=== PATIENT | female | born 1980 | race Caucasian/White ===

== ENCOUNTER 2018-10-22 21:20 | Emergency (ER) | payer SELFPAY ==
[2018-10-22] MEDS ORDERED: Ibuprofen 200 MG TAB ONE (22:56)
[2018-10-22] MEDS ORDERED: Acetaminophen 325 MG TAB ONE (22:56)
--- NOTE | 2018-10-22 23:03 | RAD ---
RADIOGRAPH CHEST 2 VIEWS: DATE: 10/22/2018 HISTORY: 38-year-old female with cough and fever FINDINGS: There is no airspace density, pulmonary edema, pleural effusion, pneumothorax, or cardiomegaly. IMPRESSION: No acute cardiopulmonary findings.
== END 2018-10-22 23:15 | disposition home or self-care (01) ==
LOC: ERS 21:20
DX: J02.9 Acute pharyngitis, unspecified (principal); F41.9 Anxiety disorder, unspecified; F32.9 Major depressive disorder, single episode, unspecified; F43.10 Post-traumatic stress disorder, unspecified; F17.210 Nicotine dependence, cigarettes, uncomplicated
CPT/HCPCS: 71046; 87804

== ENCOUNTER 2019-04-10 13:07 | Emergency (ER) | payer OTHER, SELFPAY ==
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
== END 2019-04-10 16:00 | disposition home or self-care (01) ==
LOC: ERS 13:07
DX: S60.012A Contusion of left thumb without damage to nail, initial encounter (principal); F41.9 Anxiety disorder, unspecified; F32.9 Major depressive disorder, single episode, unspecified; F43.10 Post-traumatic stress disorder, unspecified; F17.210 Nicotine dependence, cigarettes, uncomplicated; W01.0XXA Fall on same level from slipping, tripping and stumbling without subsequent striking against object, initial encounter

== ENCOUNTER 2019-07-11 12:32 | Emergency (ER) | payer SELFPAY ==
--- NOTE | 2019-07-11 12:58 | RAD ---
2 view chest: [07/11/2019] Comparison:10/22/2018 HISTORY: Chest congestion and chest soreness FINDINGS: Heart and mediastinal contours are grossly unremarkable. No pneumothorax or pleural fluid. No focal consolidation or alveolar edema. IMPRESSION: No acute findings.
== END 2019-07-11 14:05 | disposition home or self-care (01) ==
LOC: ERS 12:32
DX: R05 Cough (principal); F41.9 Anxiety disorder, unspecified; F32.9 Major depressive disorder, single episode, unspecified; F43.10 Post-traumatic stress disorder, unspecified; F17.210 Nicotine dependence, cigarettes, uncomplicated
CPT/HCPCS: 71046

== ENCOUNTER 2020-04-29 11:15 | Emergency (ER) | payer SELFPAY ==
[2020-04-29 12:40] LABS: #Basophils 0.1 thou/uL (0.0-0.2); #Eosinphils 0.3 thou/uL (0.0-0.7); #Lymphocytes 2.5 thou/uL (1.20-3.40); #Monocytes 0.5 thou/uL (0.11-0.59); #Neutrophils 5.1 thou/uL (1.40-6.50); %Basophils 1.4 % (0.0-1.0); %Lymphocytes 29.4 % (21.0-51.0); %Monocytes 5.5 % (0.0-10.0); %Neutrophils 59.6 % (42.0-75.0); Hemoglobin 14.5 g/dL (12.0-16.0); Mean Corpuscular HGB CONC 34.1 g/dL (32.0-36.0); Mean Corpuscular Hemoglobin 31.7 pg (27.0-31.0); Mean Platelet Volume 8.9 fL (7.4-10.4); Platelet Count 225 thou/uL (130-400); RBC Distribution Width 12.9 % (11.5-14.5); Red Blood Cell (RBC) Count 4.56 mill/uL (4.20-5.40); White Blood Cell (WBC) Count 8.5 thou/uL (4.8-10.8)
--- NOTE | 2020-04-29 12:41 | RAD ---
PA CHEST: History: Chest pain FINDINGS: Lungs appear clear. No infiltrate. Heart and mediastinum appear normal. IMPRESSION: No acute findings. POS: AH
[2020-04-29] MEDS ORDERED: Mag-Al 1200 mg/1200 mg/30 ML UDCUP ONE (12:51)
[2020-04-29] MEDS ORDERED: Famotidine/PF 20 mg/2ml Vial ONE (12:51)
[2020-04-29] MEDS ORDERED: Lidocaine Viscous Sol 2% 15 ml UD Cup ONE (12:51)
[2020-04-29 13:03] LABS: ALT (SGPT) 26 U/L (8-55); AST (SGOT) 16 U/L (5-34); Albumin 4.1 g/dL (3.5-5.0); Alkaline Phosphatase 91 U/L (40-110); Anion Gap 11 mmol/L (10-20); BUN (Urea Nitrogen) 6 mg/dL (7.0-18.7); Bilirubin, Total 0.2 mg/dL (0.2-1.2); Calc. Creatinine Clearance 0 mL/min (70-130); Calcium 9.1 mg/dL (7.8-10.44); Carbon Dioxide 25 mmol/L (22-29); Chloride 106 mmol/L (98-107); Estimated GFR-MDRD 83; Globulin 3.2 g/dL (2.4-3.5); Glucose 77 mg/dL (70-105); Potassium 3.9 mmol/L (3.5-5.1); Protein, Total 7.3 g/dL (6.0-8.3); Sodium 138 mmol/L (136-145)
--- NOTE | 2020-04-29 13:13 | CT ---
EXAM: CT pulmonary angiogram with IV contrast and 3-D MIP reconstructions PROVIDED CLINICAL HISTORY: Shortness of breath COMPARISON: None FINDINGS: There is no evidence for central or segmental pulmonary embolus. The lungs are free of significant opacity. No pleural fluid or pneumothorax apparent. No evidence for thoracic lymph node enlargement. The airway appears patent and of normal caliber. The visualized portions of the upper abdomen demonstrate no acute findings. The osseous structures demonstrate no concerning lytic or blastic lesions. IMPRESSION: No evidence for central or segmental pulmonary embolus.
[2020-04-29 13:32] LABS: Bilirubin Negative (Negative); Blood, Urine Negative (Negative); Clarity Clear (Clear); Glucose, Urine (Dipstick) Normal (Negative); Ketone, Urine Negative (Negative); Leukocyte Negative Leu/uL (Negative); Nitrite Negative (Negative); Protein, Urine (Dipstick) Negative (Neg-Trace); Specific Gravity, Urine 1.016 (1.002-1.036); Urobilinogen Normal mg/dL (Less than 2)
[2020-04-29 13:42] LABS: Medtox Reader # READER 1
[2020-04-29 13:43] LABS: Amphetamine Not Detected (NotDetected); Barbiturates Screen Not Detected (NotDetected); Benzodiazepine Screen Not Detected (NotDetected); Cocaine Metabolite Screen Not Detected (NotDetected); Methadone Not Detected (NotDetected); Methamphetamine Not Detected (NotDetected); Opiate Screen Not Detected (NotDetected); Oxycodone Screen Not Detected (NotDetected); Phencyclidine (PCP) Not Detected (NotDetected); THC/Cannabinoid Screen Not Detected (NotDetected); Tricyclic Screen Detected (NotDetected)
[2020-04-29 13:44] LABS: Medtox Control Line Valid? VALID (VALID)
[2020-04-29] MEDS ORDERED: Iopamidol-370 76% 500 ML 1 ML ONE (14:07)
[2020-04-29 15:23] LABS: Acetaminophen Less than 6.0 mcg/mL (10.0-30.0); Alcohol Less than 10 mg/dL (Less than 10); Salicylate Less than 8.0 mg/dL (15.0-30.0)
== END 2020-04-29 14:06 | disposition home or self-care (01) ==
LOC: ERS 11:15
DX: R00.2 Palpitations (principal); R06.00 Dyspnea, unspecified; F41.9 Anxiety disorder, unspecified; F17.210 Nicotine dependence, cigarettes, uncomplicated; Z79.899 Other long term (current) drug therapy
CPT/HCPCS: 71045; 71275; 80053; 80306; 80307; 81003; 84443; 84484; 85025; 85379; 93005; 94760; 96374; Q9967; S0028

== ENCOUNTER 2020-05-23 13:47 | Inpatient (IN) | payer SELFPAY ==
[2020-05-23 14:20] LABS: #Basophils 0.1 thou/uL (0.0-0.2); #Eosinphils 0.4 thou/uL (0.0-0.7); #Lymphocytes 2.6 thou/uL (1.20-3.40); #Monocytes 0.5 thou/uL (0.11-0.59); #Neutrophils 4.1 thou/uL (1.40-6.50); %Basophils 1.5 % (0.0-1.0); %Eosinophils 5.7 % (0.0-10.0); %Lymphocytes 33.8 % (21.0-51.0); %Monocytes 6.1 % (0.0-10.0); %Neutrophils 52.8 % (42.0-75.0); Hemoglobin 13.3 g/dL (12.0-16.0); Mean Corpuscular HGB CONC 33.5 g/dL (32.0-36.0); Mean Corpuscular Hemoglobin 30.7 pg (27.0-31.0); Mean Corpuscular Volume 91.6 fL (78.0-98.0); Mean Platelet Volume 8.2 fL (7.4-10.4); Platelet Count 243 thou/uL (130-400); RBC Distribution Width 12.7 % (11.5-14.5); Red Blood Cell (RBC) Count 4.34 mill/uL (4.20-5.40); White Blood Cell (WBC) Count 7.7 thou/uL (4.8-10.8)
--- NOTE | 2020-05-23 14:21 | RAD ---
EXAM: CHEST ONE VIEW HISTORY: Tachycardia over last couple of months. desk monitor in place. COMPARISON: 04/29/2020 FINDINGS: A electronic monitoring device overlies the left lung apex. Cardiac silhouette and pulmonary vasculat ure are within normal limits. The lungs are clear. There has been no interval change from prior study. IMPRESSION: Stable chest without evidence of an acute cardiopulmonary process.
[2020-05-23 14:28] LABS: BHCG - Serum Negative (NEGATIVE); Pregs Control Background? CLEAR/WHITE (CLR/WHITE); Pregs Control Bar Appear? YES (CONTROL BAR)
[2020-05-23 14:43] LABS: Bilirubin Negative (Negative); Blood, Urine Negative (Negative); Clarity Clear (Clear); Glucose, Urine (Dipstick) Normal (Negative); Ketone, Urine Negative (Negative); Leukocyte Negative Leu/uL (Negative); Nitrite Negative (Negative); Protein, Urine (Dipstick) Negative (Neg-Trace); Specific Gravity, Urine 1.006 (1.002-1.036); Urobilinogen Normal mg/dL (Less than 2); pH, Urine 7.5 (5.0-9.0)
[2020-05-23 14:50] LABS: ALT (SGPT) 16 U/L (8-55); AST (SGOT) 14 U/L (5-34); Albumin 3.7 g/dL (3.5-5.0); Alkaline Phosphatase 86 U/L (40-110); Anion Gap 14 mmol/L (10-20); BUN (Urea Nitrogen) 7 mg/dL (7.0-18.7); Bilirubin, Total 0.2 mg/dL (0.2-1.2); Calc. Creatinine Clearance 0 mL/min (70-130); Calcium 8.5 mg/dL (7.8-10.44); Carbon Dioxide 22 mmol/L (22-29); Chloride 108 mmol/L (98-107); Estimated GFR-MDRD 89; Globulin 2.8 g/dL (2.4-3.5); Glucose 112 mg/dL (70-105); Potassium 3.8 mmol/L (3.5-5.1); Protein, Total 6.5 g/dL (6.0-8.3); Sodium 140 mmol/L (136-145)
[2020-05-23] MEDS ORDERED: Acetaminophen 325 MG TAB PO PRN (15:49)
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
[2020-05-23 18:35] LABS: Troponin I Less than 0.010 ng/mL (< 0.028)
[2020-05-23 21:13] VITALS: BMI 35.4
[2020-05-23] MEDS ORDERED: Ondansetron PF 4 MG/2 ML Vial IVP PRN (21:15)
[2020-05-23] MEDS ORDERED: Ondansetron ODT 4 MG TAB SL PRN (21:15)
[2020-05-23] MEDS ORDERED: Sodium Chloride 0.9% 1,000 ML IV SCH (21:15)
[2020-05-23 22:45] LABS: Troponin I Less than 0.010 ng/mL (< 0.028)
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
[2020-05-23] MEDS ORDERED: Amitriptyline HCl 100 MG TAB PO SCH (23:45)
[2020-05-23] MEDS ORDERED: Escitalopram Oxalate 20 mg Tablet PO SCH (23:45)
[2020-05-23] MEDS ORDERED: Propranolol 10 MG TAB PO SCH (23:45)
[2020-05-24] MEDS ORDERED: GABAPENTIN ENACARBIL 600 MG PO SCH (00:15)
[2020-05-24 00:46] LABS: SARS-CoV-2 MS2 Positive; SARS-CoV-2 N Gene Negative; SARS-CoV-2 S Gene Negative; SARS-CoV-2 by NAA Not Detected (NotDetected); SARS-CoV-2 orf1ab Negative
[2020-05-24 04:47] LABS: #Basophils 0.1 thou/uL (0.0-0.2); #Eosinphils 0.4 thou/uL (0.0-0.7); #Lymphocytes 2.6 thou/uL (1.20-3.40); #Monocytes 0.5 thou/uL (0.11-0.59); #Neutrophils 4.4 thou/uL (1.40-6.50); %Basophils 1.7 % (0.0-1.0); %Eosinophils 5.4 % (0.0-10.0); %Lymphocytes 31.8 % (21.0-51.0); %Monocytes 6.5 % (0.0-10.0); %Neutrophils 54.6 % (42.0-75.0); Hemoglobin 11.8 g/dL (12.0-16.0); Mean Corpuscular HGB CONC 33.4 g/dL (32.0-36.0); Mean Corpuscular Hemoglobin 31.2 pg (27.0-31.0); Mean Corpuscular Volume 93.3 fL (78.0-98.0); Mean Platelet Volume 8.2 fL (7.4-10.4); Platelet Count 215 thou/uL (130-400); RBC Distribution Width 12.8 % (11.5-14.5); Red Blood Cell (RBC) Count 3.77 mill/uL (4.20-5.40); White Blood Cell (WBC) Count 8.1 thou/uL (4.8-10.8)
[2020-05-24 05:22] LABS: Anion Gap 13 mmol/L (10-20); BUN (Urea Nitrogen) 11 mg/dL (7.0-18.7); Calc. Creatinine Clearance 136 mL/min (70-130); Calcium 7.8 mg/dL (7.8-10.44); Carbon Dioxide 21 mmol/L (22-29); Chloride 109 mmol/L (98-107); Estimated GFR-MDRD 88; Glucose 102 mg/dL (70-105); Potassium 3.9 mmol/L (3.5-5.1); Sodium 139 mmol/L (136-145)
[2020-05-24] MEDS: Propranolol 10 MG TAB PO SCH ×2 (09:54→21:32)
--- NOTE | 2020-05-24 11:13 | PDOC.HOSPP ---
- Subjective Encounter Date: 05/24/20 Encounter Time: 10:40 Subjective: Patient was seen as a follow-up for tachycardia and progressive dyspnea this morning. She states she feels overly tired and she feels she cannot get a good night sleep due to shortness of breath. Patient's heart rate remained in a regular rhythm in the 80s overnight. Patient stated that Dr. Mitchell said she is possibly going for an ablation tomorrow. - Objective Vital Signs & Weight: Vital Signs (12 hours) Temp Pulse Resp BP Pulse Ox 05/24/20 07:36 98.3 F 88 18 108/60 97 05/24/20 04:00 97.9 F 88 22 H 112/68 98 Weight Weight 187 lb 3.2 oz I&O: 05/23/20 05/24/20 05/25/20 06:59 06:59 06:59 Intake Total 1334 Output Total 350 Balance 984 Result Diagrams: 05/24/20 04:31 05/24/20 04:31 Hospitalist ROS - Review of Systems Respiratory: reports: shortness of breath Cardiovascular: reports: orthopnea All other systems reviewed; all pertinent +/- noted in HPI/Subj - Medication Medications: Active Medications Generic Name Dose Route Start Last Admin Trade Name Freq PRN Reason Stop Dose Admin Acetaminophen 650 mg 05/23/20 15:49 05/23/20 23:21 Acetaminophen 325 Mg Tab PO 650 mg Q4H PRN Administration Headache/Fever/Mild Pain (1-3) Propranolol HCl 20 mg 05/24/20 09:00 05/24/20 09:54 Propranolol 10 Mg Tab PO 20 mg BID JORDON Administration Sodium Chloride 10 ml 05/24/20 09:00 05/24/20 09:55 Flush - Normal Saline 10 Ml Syringe IVF 10 ml Q12HR JORDON Administration - Exam General Appearance: NAD, awake alert Heart: RRR, no murmur, no gallops, no rubs, normal peripheral pulses Respiratory: CTAB, no wheezes, no rales, no ronchi, normal chest expansion Respiratory - other findings: Appears slightly labored when talking Gastrointestinal: soft, non-tender, non-distended, normal bowel sounds Extremities: 1+ LE edema Psychiatric: flat affect Hosp A/P (1) Sinus tachycardia Code(s): R00.0 - TACHYCARDIA, UNSPECIFIED Status: Acute (2) Dyspnea Code(s): R06.00 - DYSPNEA, UNSPECIFIED Status: Acute (3) GERD (gastroesophageal reflux disease) Code(s): K21.9 - GASTRO-ESOPHAGEAL REFLUX DISEASE WITHOUT ESOPHAGITIS Status: Chronic (4) Neuropathy Code(s): G62.9 - POLYNEUROPATHY, UNSPECIFIED Status: Chronic - Plan #Sinus tachycardia Possible ablation tomorrow per EP Monitor on telemetry, no arrhythmias noted as of yet VS q4hr #Dyspnea Awaiting pulmonology consult Shortness of breath began intermittently after April 06, 2020 #GERD Home meds have been restarted No current complaints #Neuropathy Home meds have been restarted
[2020-05-24] MEDS ORDERED: busPIRone HCl 10 MG TAB PO PRN (11:16)
--- NOTE | 2020-05-24 16:04 | PDOC.EP ---
- Subjective Date: 05/24/20 Time: 08:00 Interval History: No change overnight. She continues to experience shortness of breath and occasional tachycardia with palpitations - Review of Systems Constitutional: reports: weakness. denies: chills, fever, malaise Respiratory: reports: shortness of breath, SOB with excertion Cardiology: reports: heart racing, palpitations Gastrointestinal: denies: abdominal pain, constipation, nausea, vomitting Musculoskeletal: denies: unstable gait, falls, neck pain - Objective Allergies/Adverse Reactions: Allergies Allergy/AdvReac Type Severity Reaction Status Date / Time naproxen Allergy Verified 05/23/20 21:16 Current Medications Acetaminophen (Acetaminophen 325 Mg Tab) 650 mg PO Q4H PRN PRN Reason: Headache/Fever/Mild Pain (1-3) Last Admin: 05/23/20 23:21 Dose: 650 mg Documented by: Amitriptyline HCl (Amitriptyline Hcl 100 Mg Tab) 100 mg PO HS JORDON Buspirone HCl (Buspirone Hcl 10 Mg Tab) 10 mg PO BIDPRN PRN PRN Reason: Anxiety Escitalopram Oxalate (Escitalopram Oxalate 20 Mg Tablet) 20 mg PO HS [facility] Pantoprazole Sodium (Pantoprazole 40 Mg Tab) 40 mg PO DAILY [facility] Gabapentin Enacarbil [Horizant] 600 Mg Tablet.Er 0 each PO 1700 [facility] Propranolol HCl (Propranolol 10 Mg Tab) 20 mg PO BID [facility] Last Admin: 05/24/20 09:54 Dose: 20 mg Documented by: Sodium Chloride (Flush - Normal Saline 10 Ml Syringe) 10 ml IVF Q12HR [facility] Last Admin: 05/24/20 09:55 Dose: 10 ml Documented by: Sodium Chloride (Flush - Normal Saline 10 Ml Syringe) 10 ml IVF PRN PRN PRN Reason: Saline Flush Vital Signs & Weight: Vital Signs Temp Pulse Resp BP Pulse Ox 05/24/20 15:37 98.4 F 90 16 103/59 L 97 05/24/20 11:21 97.6 F 90 18 114/56 L 97 05/24/20 07:36 98.3 F 88 18 108/60 97 Weight 187 lb 3.2 oz I/O: I/O 05/23/20 05/24/20 05/25/20 06:59 06:59 06:59 Intake Total 1334 Output Total 350 Balance 984 - Physical Exam General: alert & oriented x3, appears well, no apparent distress HEENT: mucus membranes moist, normocephaly Neck: supple neck, midline trachea, no lymphadenopathy Cardiology: regular rate and rhythm, no murmur, regular rhythm, PMI nondisplaced, tachycardia Lungs: clear to auscultation, normal breath sounds, no wheeze, rales, rhonchi Neurology: cranial nerve 2-12 intact, grossly intact, no lateralizing findings - Labs Result Diagrams: 05/25/20 04:09 05/25/20 04:09 - EKG Interpretation EKG Method: Telemetry EKG shows: Sinus tachycardia - Assessment/Plan Assessment/Plan: 1. Supraventricular tachycardia. 2. Sinus tachycardia. 3. Progressive dyspnea and shortness of breath x6 weeks. 4. preserved LVEF by echocardiogram last week 5. normal stress test last week 6. history of tubal ligation, serum test negative this hospital stay received initial results from a external monitor she has been wearing for the past few weeks. It shows frequent sinus tachycardia between 115 and 145 beats per minute. The morning she came to the hospital it shows SVT at 180 beats per minute, with difficult to visualize Pwaves. As I have previously discussed with her it sounds as though she may have multiple issues going on. The current episode could be caused by a reentry type of SVT, this does not explain why she continues to have frequent and progressive dyspnea, shortness of breath and sinus tachycardia. pulmonary consult pending. vital signs are stable and she remains afebrile. proceed with the EP study and possible SVT ablation tomorrow. Will keep NPO after midnight. Covid Test negative 05/23/20
[2020-05-24] MEDS: GABAPENTIN ENACARBIL 600 MG PO SCH (17:20)
[2020-05-24] MEDS ORDERED: Escitalopram Oxalate 20 mg Tablet PO SCH (21:00)
[2020-05-24] MEDS: Amitriptyline HCl 100 MG TAB PO SCH (21:32)
[2020-05-24] MEDS: Escitalopram Oxalate 20 mg Tablet PO SCH (21:32)
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
[2020-05-25 04:42] LABS: #Basophils 0.1 thou/uL (0.0-0.2); #Eosinphils 0.4 thou/uL (0.0-0.7); #Monocytes 0.7 thou/uL (0.11-0.59); #Neutrophils 5.2 thou/uL (1.40-6.50); %Basophils 1.3 % (0.0-1.0); %Eosinophils 4.1 % (0.0-10.0); %Monocytes 7.3 % (0.0-10.0); %Neutrophils 55.3 % (42.0-75.0); Hemoglobin 12.1 g/dL (12.0-16.0); Mean Corpuscular HGB CONC 33.7 g/dL (32.0-36.0); Mean Corpuscular Hemoglobin 31.3 pg (27.0-31.0); Mean Platelet Volume 9.4 fL (7.4-10.4); Platelet Count 231 thou/uL (130-400); RBC Distribution Width 12.9 % (11.5-14.5); Red Blood Cell (RBC) Count 3.86 mill/uL (4.20-5.40); White Blood Cell (WBC) Count 9.3 thou/uL (4.8-10.8)
[2020-05-25 05:10] LABS: Anion Gap 12 mmol/L (10-20); BUN (Urea Nitrogen) 11 mg/dL (7.0-18.7); Calc. Creatinine Clearance 124 mL/min (70-130); Calcium 8.3 mg/dL (7.8-10.44); Carbon Dioxide 24 mmol/L (22-29); Chloride 105 mmol/L (98-107); Estimated GFR-MDRD 79; Glucose 88 mg/dL (70-105); Potassium 4.1 mmol/L (3.5-5.1); Sodium 137 mmol/L (136-145)
[2020-05-25] MEDS ORDERED: Dexamethasone 20 MG/5 ML VIAL ONE (09:20)
[2020-05-25] MEDS ORDERED: PROPOFOL 200 MG/20 ML VIAL ONE (09:20)
[2020-05-25] MEDS ORDERED: Lidocaine 1% PF 5 ML VIAL ONE (09:20)
[2020-05-25] MEDS ORDERED: Ondansetron PF 4 MG/2 ML Vial ONE (09:20)
[2020-05-25] MEDS ORDERED: Heparin 10,000 UNITS/ 10 ML VIAL ONE (11:28)
[2020-05-25] MEDS ORDERED: Isoproterenol 0.2 MG/1 ML AMP ONE (13:04)
[2020-05-25] MEDS ORDERED: Fentanyl 100 MCG/2 ML VIAL ONE (13:33)
[2020-05-25] MEDS ORDERED: Ondansetron HCl/PF 4 MG/2 ML Vial IVP PRN (14:23)
[2020-05-25] MEDS ORDERED: Meperidine HCl/PF 25 MG/ML VIAL SLOW IVP PRN (14:23)
[2020-05-25] MEDS ORDERED: Promethazine HCl 25 MG/ML VIAL IM PRN (14:23)
[2020-05-25] MEDS ORDERED: Promethazine HCl 25 MG/ML VIAL SLOW IVP PRN (14:23)
[2020-05-25] MEDS ORDERED: Acetaminophen/Codeine 30-300mg Tablet PO PRN ×4 (14:45→16:30)
--- NOTE | 2020-05-25 17:36 | PDOC.HOSPP ---
- Objective Vital Signs & Weight: Vital Signs (12 hours) Temp Pulse Resp BP Pulse Ox 05/25/20 15:45 99.0 F 94 16 115/64 94 L 05/25/20 11:19 99.2 F 90 16 111/69 96 05/25/20 07:10 98.7 F 82 18 118/70 96 Weight Weight 187 lb 3.2 oz I&O: 05/24/20 05/25/20 05/26/20 06:59 06:59 06:59 Intake Total 1334 480 Output Total 350 Balance 984 480 Result Diagrams: 05/25/20 04:09 05/25/20 04:09 Hospitalist ROS - Medication Medications: Active Medications Generic Name Dose Route Start Last Admin Trade Name Freq PRN Reason Stop Dose Admin Acetaminophen 650 mg 05/23/20 15:49 05/23/20 23:21 Acetaminophen 325 Mg Tab PO 650 mg Q4H PRN Administration Headache/Fever/Mild Pain (1-3) Amitriptyline HCl 100 mg 05/24/20 21:00 05/24/20 21:32 Amitriptyline Hcl 100 Mg Tab PO 100 mg HS JORDON Administration Escitalopram Oxalate 20 mg 05/24/20 21:00 05/24/20 21:32 Escitalopram Oxalate 20 Mg Tablet PO 20 mg HS JORDON Administration Pantoprazole Sodium 40 mg 05/25/20 09:00 05/25/20 08:49 Pantoprazole 40 Mg Tab PO 40 mg DAILY JORDON Administration Gabapentin Enacarbil 0 each 05/24/20 17:00 05/24/20 17:20 [Horizant] 600 Mg PO 1 each Tablet.Er 1700 JORDON Administration Propranolol HCl 20 mg 05/24/20 09:00 05/24/20 21:32 Propranolol 10 Mg Tab PO 20 mg BID JORDON Administration Sodium Chloride 10 ml 05/24/20 09:00 05/25/20 08:49 Flush - Normal Saline 10 Ml Syringe IVF 10 ml Q12HR JORDON Administration
[2020-05-25] MEDS: GABAPENTIN ENACARBIL 600 MG PO SCH (18:28)
--- NOTE | 2020-05-25 19:03 | OP ---
DATE OF PROCEDURE: 05/25/2020 PROCEDURES PERFORMED: Electrophysiology study and radiofrequency ablation. REASON FOR PROCEDURE: Ms. Duvall is a 40-year-old woman with prior history of rapid palpitations, who has developed even more excessive palpitations on the day of admission and EMS documented SVT, which was undeterminable. No strips available. She is here for EP study and potential ablation. DESCRIPTION OF PROCEDURE: The patient received deep sedation by Anesthesia specialist. Left and right femoral venous area was prepped, draped, anesthetized with subcutaneous lidocaine, and under ultrasound guidance, the left femoral vein was cannulated x2. A 6 and 8-[place] sheaths were used to advance a DecaNav and an octapolar pace mapping catheters to the right atrium, right ventricle, His bundle, and CS position. Pacing, mapping, and recording were performed at each location including pacing the CS and the left atrium. The following findings were noted. Baseline rhythm was sinus rhythm with cycle length 631 milliseconds, HI 110 milliseconds, QRS 93 milliseconds, QT 390 milliseconds, AH 48 milliseconds, HV 50 milliseconds. AV Wenckebach cycle length was 280 milliseconds. Retrograde Wenckebach cycle was measured at 430 milliseconds. Concentric retrograde VA conduction was seen. AV himanshu ERP was measured at 600/200 milliseconds, but there was no dual AV himanshu physiology present. Burst atrial pacing induced atrial fibrillation quickly converting to sustained atrial flutter. The atrial flutter had typical isthmus dependent morphology with proximal to distal CS activation. Overdrive pacing also seemed to confirm the right atrial dependence. Through a right femoral venous sheath, a ThermoCool SFST catheter advanced to the right atrium. Cavotricuspid isthmus ablation was performed prolonging the transisthmus time to 120 milliseconds. Rapid posterior wall conduction was seen. The transisthmus block was demonstrated by longest transisthmus time adjacent to the ablation line. Total of 8 lesions delivered at total duration 3 minutes and 41 seconds at 40 christian. Following that, Isuprel was again used to assess patency of the line and also attempts were made to reinduce arrhythmias. No further atrial arrhythmia was induced and seen. At the end of the case, cardiac silhouette did not change. Catheter was removed and the sheaths were pulled in the engineering lab technician with manual pressure was applied to obtain hemostasis. CONCLUSION: 1. Inducible typical isthmus dependent appearing atrial flutter. 2. Cavotricuspid isthmus ablation produces Cavotricuspid isthmus block and eliminated inducibility of atrial flutter. 3. Normal sinus and AV himanshu function, normal His-Purkinje function seen. Rapid atrial pacing did demonstrate occasional right bundle aberration. 4. No evidence of accessory pathway and no dual AV himanshu physiology present. PLAN: At this point, I would not initiate oral anticoagulation unless more sustained atrial arrhythmias seen. Monitor for recurrent atrial fibrillation or flutter, could consider adding adjusting beta-glenroy regimen. Job ID: [id number]
[2020-05-25] MEDS: Escitalopram Oxalate 20 mg Tablet PO SCH (20:44)
[2020-05-25] MEDS: Propranolol 10 MG TAB PO SCH (20:44)
[2020-05-25] MEDS: Amitriptyline HCl 100 MG TAB PO SCH (20:44)
[2020-05-26] MEDS: Propranolol 10 MG TAB PO SCH (09:50)
[2020-05-26 15:47] VITALS: BP 112/69; TEMP 98.3
--- NOTE | 2020-05-26 17:19 | PDOC.EP ---
- Subjective Date: 05/26/20 Time: 08:00 Interval History: reporting less tachycardia, palpitations and shortness of breath. Feels well - Review of Systems Constitutional: reports: weakness. denies: chills, fever Respiratory: denies: cough, pleuritic pain, shortness of breath Cardiology: denies: chest pain, edema, heart racing, light headedness, palpitations, passing out Gastrointestinal: denies: abdominal pain, constipation, diarrhea - Objective Allergies/Adverse Reactions: Allergies Allergy/AdvReac Type Severity Reaction Status Date / Time naproxen Allergy Verified 05/23/20 21:16 Vital Signs & Weight: Vital Signs Temp Pulse Resp BP Pulse Ox 05/26/20 15:47 98.3 F 95 14 112/69 97 05/26/20 12:00 97.8 F 94 12 116/66 95 05/26/20 07:51 97.4 F L 92 14 104/61 98 Weight 187 lb 3.2 oz I/O: I/O 05/25/20 05/26/20 05/27/20 06:59 06:59 06:59 Intake Total 480 480 Balance 480 480 - Medication Contraindications No Anticoagulant reason: Treatment not indicated - Physical Exam General: alert & oriented x3, appears well, no apparent distress HEENT: mucus membranes moist, normocephaly Neck: supple neck, midline trachea, no lymphadenopathy Cardiology: regular rate and rhythm, no murmur, PMI nondisplaced Lungs: clear to auscultation, normal breath sounds, no wheeze, rales, rhonchi Neurology: cranial nerve 2-12 intact, grossly intact, no lateralizing findings Abdomen: unremarkable, active bowel sounds, no pulsations/bruits - Chadsvasc Risk factors Female: 1 Risk Score: 1 - Labs Result Diagrams: 05/25/20 04:09 05/25/20 04:09 - EKG Interpretation EKG Method: Telemetry EKG shows: Sinus rhythm - Assessment/Plan Assessment/Plan: 1. Typical atrial flutter -s/p CTI flutter ablation 05/25/20 - AA 81mg daily x 30 days - 6 week follow up 2. SOB -improving 3. Sinus tachycardia -transient OK for DC by EP. 6 week follow up will be arranged. Continue BB on DC unless hypotensive.
--- NOTE | 2020-05-27 04:40 | DIS ---
DATE OF ADMISSION: 05/23/2020 DATE OF DISCHARGE: 05/26/2020 DISCHARGE DIAGNOSES: As of the following, 1. Supraventricular tachycardia. 2. Sinus tachycardia. 3. Dyspnea for the past 6 weeks. HOSPITAL COURSE: The patient is a 40-year-old female, who initially presented to the hospital with tachycardia and palpitations. She was noted to be in SVT. She was seen by EP. She was noted to have some abnormal breathing at this time. Pulmonology was consulted. Recommended outpatient PFTs to be done. The patient continues to smoke about a pack a day. I recommended the patient to follow up as an outpatient and her chest x-ray was appeared to be normal. The patient actually had a CTA in April of this year, which was negative for any PE. The patient underwent an ablation at the cavotricuspid isthmus block and elimination inducibility of atrial flutter. At this time, EP recommended just a baby aspirin and she will continue as an outpatient with them. She is currently on sinus rhythm. HOME MEDICATIONS: Will be as of the following, 1. Escitalopram 20 mg at bedtime. 2. Gabapentin 600 mg q.p.m. 3. Pantoprazole 40 mg daily. 4. Amitriptyline 100 mg h.s. 5. Propranolol 20 mg b.i.d. 6. Buspirone 10 mg as needed. 7. Aspirin 81 mg daily. ALLERGIES: I DID TALK TO HER ABOUT ALLERGIES, SHE HAS NO ALLERGIES TO THE ASPIRIN. SHE IS ABLE TO TOLERATE THE ASPIRIN. PHYSICAL EXAMINATION: VITAL SIGNS: On discharge, temperature of 98.3, 95, 14, 97% on room air, 112/69. GENERAL: She is awake, alert, and oriented x3. Does not appear in distress. CV: S1 and S2 present. No murmurs, rubs, gallops. The patient does have generalized weakness. She feels tired. Her TSH was checked. Her was negative. Her TSH was normal. She has been apparently in tachycardia for quite some time. I did speak with EP, they saw it was possibly some SVT with some probably A. flutter with some sinus tach. At this time recommended only a baby aspirin and they will follow her up in a week to see if she requires any other anticoagulation or if she has recurrence of atrial flutter or atrial fibrillation. Job ID: [id number]
--- NOTE | 2020-05-27 07:09 | EKG ---
Test Reason : Blood Pressure : / mmHG Vent. Rate : 097 BPM Atrial Rate : 097 BPM P-R Int : 132 ms QRS Dur : 084 ms QT Int : 358 ms P-R-T Axes : 052 080 030 degrees QTc Int : 454 ms Normal sinus rhythm Normal ECG When compared with ECG of 23-MAY-2020 13:54, (Unconfirmed) No significant change was found Confirmed by DR. Akosua SCHNEIDER ([id number]) on 05/27/2020 7:08:37 AM Referred By: MELISSA Confirmed By:DR. Akosua SCHNEIDER
--- NOTE | 2020-05-27 07:14 | EKG ---
Test Reason : Blood Pressure : / mmHG Vent. Rate : 092 BPM Atrial Rate : 092 BPM P-R Int : 112 ms QRS Dur : 086 ms QT Int : 370 ms P-R-T Axes : 027 076 041 degrees QTc Int : 457 ms Sinus rhythm with Premature atrial complexes Otherwise normal ECG When compared with ECG of 25-MAY-2020 14:53, (Unconfirmed) Premature atrial complexes are now Present Confirmed by DR. Akosua SCHNEIDER ([id number]) on 05/27/2020 7:14:33 AM Referred By: [facility] Confirmed By:DR. Akosua SCHNEIDER
--- NOTE | 2020-05-28 09:37 | EKG ---
Test Reason : Blood Pressure : / mmHG Vent. Rate : 111 BPM Atrial Rate : 111 BPM P-R Int : 130 ms QRS Dur : 084 ms QT Int : 342 ms P-R-T Axes : 055 086 039 degrees QTc Int : 465 ms Sinus tachycardia Otherwise normal ECG Confirmed by JOSLYN MCDANIEL DO ([id number]), video editor JORGE CORTEZ ([id number]) on 05/28/2020 9:37:11 AM Referred By: Confirmed By:JOSLYN MCDANIEL DO
== END 2020-05-26 16:27 | disposition home or self-care (01) | DRG 274 ==
LOC: ERS 13:47 → ERHOLD 16:08 → 2NO 20:38
PROVIDERS: ADMIT Internal Medicine; ATTEND Internal Medicine
PROC: 02583ZZ Destruction of Conduction Mechanism, Percutaneous Approach (ICD-10-PCS; principal; 2020-05-25)
PROC: 4A023FZ Measurement of Cardiac Rhythm, Percutaneous Approach (ICD-10-PCS; 2020-05-25)
PROC: 4A0234Z Measurement of Cardiac Electrical Activity, Percutaneous Approach (ICD-10-PCS; 2020-05-25)
PROC: 02K83ZZ Map Conduction Mechanism, Percutaneous Approach (ICD-10-PCS; 2020-05-25)
DX: I47.1 Supraventricular tachycardia (principal); Z20.828 Contact with and (suspected) exposure to other viral communicable diseases; I48.3 Typical atrial flutter; K21.9 Gastro-esophageal reflux disease without esophagitis; F41.9 Anxiety disorder, unspecified; F17.210 Nicotine dependence, cigarettes, uncomplicated; G62.9 Polyneuropathy, unspecified; Z98.51 Tubal ligation status; Z88.8 Allergy status to other drugs, medicaments and biological substances; Z79.899 Other long term (current) drug therapy
CPT/HCPCS: 36415; 71045; 76942; 80048; 80053; 81003; 83880; 84484; 84703; 85025; 87086; 87635; 93005; 93010; 93613; 93621; 93623; 93653; C1730; C1732; J1100; J1644; J2405; J2704; J3010; U0003

== ENCOUNTER 2020-06-07 14:39 | Inpatient (IN) | payer SELFPAY ==
[~2020-06-07 14:39] MED LIST: Iopamidol 370 76% 100 ML VIAL ONE
[2020-06-07 15:06] LABS: #Basophils 0.1 thou/uL (0.0-0.2); #Eosinphils 0.4 thou/uL (0.0-0.7); #Lymphocytes 3.1 thou/uL (1.20-3.40); #Monocytes 0.6 thou/uL (0.11-0.59); #Neutrophils 8.2 thou/uL (1.40-6.50); %Basophils 0.8 % (0.0-1.0); %Eosinophils 2.9 % (0.0-10.0); %Lymphocytes 25.1 % (21.0-51.0); %Monocytes 5.2 % (0.0-10.0); %Neutrophils 66.1 % (42.0-75.0); Hemoglobin 13.6 g/dL (12.0-16.0); Mean Corpuscular HGB CONC 34.3 g/dL (32.0-36.0); Mean Corpuscular Hemoglobin 31.8 pg (27.0-31.0); Mean Corpuscular Volume 92.7 fL (78.0-98.0); Mean Platelet Volume 8.1 fL (7.4-10.4); Platelet Count 296 thou/uL (130-400); RBC Distribution Width 12.8 % (11.5-14.5); Red Blood Cell (RBC) Count 4.29 mill/uL (4.20-5.40); White Blood Cell (WBC) Count 12.4 thou/uL (4.8-10.8)
[2020-06-07 15:26] LABS: ALT (SGPT) 26 U/L (8-55); AST (SGOT) 14 U/L (5-34); Alkaline Phosphatase 107 U/L (40-110); Anion Gap 14 mmol/L (10-20); BUN (Urea Nitrogen) 7 mg/dL (7.0-18.7); Bilirubin, Total 0.2 mg/dL (0.2-1.2); Calc. Creatinine Clearance 0 mL/min (70-130); Calcium 8.6 mg/dL (7.8-10.44); Carbon Dioxide 26 mmol/L (22-29); Chloride 104 mmol/L (98-107); Globulin 2.7 g/dL (2.4-3.5); Glucose 99 mg/dL (70-105); Potassium 3.9 mmol/L (3.5-5.1); Protein, Total 6.7 g/dL (6.0-8.3); Sodium 140 mmol/L (136-145)
--- NOTE | 2020-06-07 15:43 | RAD ---
Chest AP view INDICATION: History of Covid positive with worsening edema in the legs and shortness of breath COMPARISON: May 23, 2020 FINDINGS: Lungs: The lungs are clear Cardiac silhouette: The cardiomediastinal silhouette appears within normal limits. Pulmonary vasculature: Normal Pleural spaces: No pleural effusion or pneumothorax is demonstrated. Upper abdomen: No abnormality seen. Osseous structures: No acute osseous abnormality. Additional findings: Small circuit board still remains overlying the upper chest and may have been r elated to a previously seen loop recorder associated with the patient. IMPRESSION: No acute cardiopulmonary abnormality. Possible radiopaque foreign body overlying the patient's upper chest wall.
[2020-06-07 17:44] LABS: Bacteria/HPF 2+ HPF (None Seen); Bilirubin Negative (Negative); Blood, Urine 3+ (Negative); Clarity Clear (Clear); Glucose, Urine (Dipstick) Normal (Negative); Ketone, Urine Negative (Negative); Leukocyte Negative Leu/uL (Negative); Nitrite Negative (Negative); Protein, Urine (Dipstick) Negative (Neg-Trace); Specific Gravity, Urine 1.005 (1.002-1.036); Squamous Epithelial 0-3 HPF (0-3); Urobilinogen Normal mg/dL (Less than 2); WBC/HPF 0-3 HPF (0-3); pH, Urine 5.5 (5.0-9.0)
[2020-06-07 17:47] LABS: Pregnancy Test - Urine (BHCG) Negative (Negative); Pregu Control Background? CLEAR/WHITE (CLR/WHITE); Pregu Control Bar Appear? YES (CONTROL BAR); Specific Gravity 1.005 (1.002-1.036)
[2020-06-07 17:58] LABS: Amphetamine Not Detected (NotDetected); Barbiturates Screen Not Detected (NotDetected); Benzodiazepine Screen Not Detected (NotDetected); Cocaine Metabolite Screen Not Detected (NotDetected); Medtox Control Line Valid? VALID (VALID); Medtox Reader # READER 1; Methadone Not Detected (NotDetected); Methamphetamine Not Detected (NotDetected); Opiate Screen Not Detected (NotDetected); Oxycodone Screen Not Detected (NotDetected); Phencyclidine (PCP) Not Detected (NotDetected); THC/Cannabinoid Screen Not Detected (NotDetected); Tricyclic Screen Detected (NotDetected)
--- NOTE | 2020-06-07 18:06 | CT ---
Exam: CT angiogram of the chest HISTORY: Dyspnea. COMPARISON: 04/29/2020 TECHNIQUE: CT angiogram of the chest is performed in the axial plane. Three-dimensional reformatted i mages are submitted for interpretation FINDINGS: Mediastinum: No mass, lymphadenopathy or hematoma. HEART: Normal size. No significant pericardial fluid. Aorta: No aneurysm or dissection Upper solid abdominal viscera: No abnormality enhancement. Trachea and central bronchi: Patent Pleural spaces: No effusion Lung parenchyma: Scattered tree-in-bud opacities. Correlate for atypical infection in the right upper lobe, right lower lobe. Pneumothorax: None Osseous structures: There are no lytic or blastic lesions in the osseous structures. Old right rib fr actures. Pulmonary arteries:Adequate contrast opacification of the pulmonary arterial system to the level of t he lobar arteries. There are linear filling defects involving the lobar arteries supplying the right lower lobe as well as the middle lobe. Overall evaluation the segmental and subsegmental arteri es is limited due to timing of contrast bolus. IMPRESSION: 1. Right lower lobe and middle lobe pulmonary artery emboli (axial image 61 and 58, series 2). 2. Tree-in-bud opacities in the right upper lobe and right lower lobe, possibly due to atypical infec tion. Correlate for COVID status.
[2020-06-07] MEDS ORDERED: Enoxaparin Sodium 80 MG/0.8 ML SYRINGE ONE (19:09)
[2020-06-07 21:30] LABS: SARS-CoV-2 NAA Rapid Test Not Detected (NotDetected)
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
[2020-06-08 06:04] LABS: #Basophils 0.1 thou/uL (0.0-0.2); #Eosinphils 0.3 thou/uL (0.0-0.7); #Lymphocytes 2.8 thou/uL (1.20-3.40); #Monocytes 0.7 thou/uL (0.11-0.59); %Basophils 1.2 % (0.0-1.0); %Eosinophils 3.8 % (0.0-10.0); %Lymphocytes 31.6 % (21.0-51.0); %Monocytes 7.3 % (0.0-10.0); %Neutrophils 56.1 % (42.0-75.0); Hemoglobin 12.7 g/dL (12.0-16.0); Mean Corpuscular HGB CONC 34.4 g/dL (32.0-36.0); Mean Corpuscular Hemoglobin 32.2 pg (27.0-31.0); Mean Corpuscular Volume 93.6 fL (78.0-98.0); Platelet Count 241 thou/uL (130-400); RBC Distribution Width 12.7 % (11.5-14.5); Red Blood Cell (RBC) Count 3.94 mill/uL (4.20-5.40); White Blood Cell (WBC) Count 8.8 thou/uL (4.8-10.8)
[2020-06-08] MEDS ORDERED: Enoxaparin Sodium 80 MG/0.8 ML SYRINGE ONE (07:30)
[2020-06-08] MEDS: Enoxaparin Sodium 80 MG/0.8 ML SYRINGE SC SCH ×2 (07:35→18:00)
[2020-06-08] MEDS ORDERED: Acetaminophen 325 MG TAB PO PRN (09:27)
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
[2020-06-08 15:06] LABS: SARS-CoV-2 IgG Ab Non-Reactive (NonReactive); SARS-CoV-2 IgG Index 0.02 S/CO (< 1.40)
[2020-06-08 16:14] VITALS: BMI 35.9
--- NOTE | 2020-06-08 17:46 | RAD ---
Abdomen 2 views INDICATION: Abdominal pain and distention IMPRESSION: Bowel gas pattern is nonspecific but without overt evidence of obstruction. There are charissa ateral tubal ligation clips within the lower pelvis. There is a mild amount retained stool within the colon. Lung bases are clear. No suspicious calcifications are evident. There are small phlebolith s within the lower pelvis. There is orthopedic instrumentation involving the left acetabulum. There is mild thoracolumbar scoliosis. Comments: No comparisons are available.
--- NOTE | 2020-06-08 19:18 | ULT ---
BILATERAL DOPPLER VENOUS ULTRASOUND OF THE LOWER EXTREMITIES: 06/08/20 INDICATIONS: Concern for DVT. TECHNIQUE: Chiang scale, color Doppler, and vascular duplex with spectral analysis was performed of the deep venou s structures of both lower extremities. The common femoral vein, superficial femoral vein, popliteal vein, posterior tibial vein, proximal greater saphenous, and proximal profunda veins were assessed bi laterally. FINDINGS: There is partial compression involving the right common femoral vein and right proximal femoral vein some of which may be related to patient's intolerance to the examination and pain while doing the com pression images. There is no intraluminal thrombus. There is appropriate augmentation seen at these l evels. The remaining deep venous segments of the right lower extremity and left lower extremity revea l normal compression, flow and augmentation. IMPRESSION: 1. No definite evidence of DVT within both lower extremities. 2. Diminished compression within the right common femoral vein and proximal right femoral vein m ay be related to patient's intolerance to the compression exam. No visible intraluminal thrombus or a bnormal augmentation is evident. POS: OBED
[2020-06-08] MEDS ORDERED: busPIRone HCl 10 MG TAB PO PRN (20:33)
[2020-06-08] MEDS ORDERED: Famotidine 20 MG TAB PO SCH (21:00)
[2020-06-08] MEDS: GABAPENTIN ENACARBIL 600 MG PO SCH (21:30)
[2020-06-08] MEDS: Escitalopram Oxalate 20 mg Tablet PO SCH (22:06)
[2020-06-08] MEDS: Propranolol 10 MG TAB PO SCH (22:07)
[2020-06-08] MEDS: Amitriptyline HCl 100 MG TAB PO SCH (22:19)
--- NOTE | 2020-06-08 22:43 | PDOC.HOSPP ---
- Subjective Encounter Date: 06/08/20 Encounter Time: 16:30 Subjective: Patient seen and examined for shortness of breath/tachycardia. Denies any chest pain. - Objective Vital Signs & Weight: Vital Signs (12 hours) Temp Pulse Resp BP Pulse Ox 06/08/20 15:42 98.6 F 90 17 124/71 100 Weight Weight 190 lb 8 oz Result Diagrams: 06/09/20 03:57 06/09/20 03:57 Radiology Reviewed by me: Yes (CT chestquestionable PE) EKG Reviewed by me: Yes (Sinus rhythm on telemetry) Hospitalist ROS - Review of Systems Cardiovascular: denies: chest pain, palpitations, orthopnea, paroxysmal noc. dyspnea, edema, light headedness, other Gastrointestinal: denies: nausea, vomiting, abdominal pain, diarrhea, constipation, melena, hematochezia, other - Medication Medications: Active Medications Generic Name Dose Route Start Last Admin Trade Name Freq PRN Reason Stop Dose Admin Amitriptyline HCl 100 mg 06/08/20 21:00 06/08/20 22:19 Amitriptyline Hcl 100 Mg Tab PO 100 mg HS JORDON Administration Enoxaparin Sodium 80 mg 06/08/20 06:00 06/08/20 18:00 Enoxaparin Sodium 80 Mg/0.8 Ml Syringe SC 80 mg 0600,1800 JORDON Administration Escitalopram Oxalate 20 mg 06/08/20 21:00 06/08/20 22:06 Escitalopram Oxalate 20 Mg Tablet PO 20 mg HS JORDON Administration Famotidine 20 mg 06/08/20 21:00 06/08/20 20:23 Famotidine 20 Mg Tab PO 20 mg BID JORDON Administration Levofloxacin 750 mg/ Device 150 mls @ 100 mls/hr 06/08/20 20:00 06/08/20 22:21 IVPB 150 mls Q24HR JORDON Administration Propranolol HCl 20 mg 06/08/20 21:00 06/08/20 22:07 Propranolol 10 Mg Tab PO 20 mg BID JORDON Administration - Exam General Appearance: NAD Heart: RRR, no gallops Respiratory: no wheezes, no ronchi Gastrointestinal: non-tender, normal bowel sounds Extremities: no cyanosis Skin: normal turgor Hosp A/P - Plan DVT proph w/lovenox, DVT proph w/SCDs Shortness of breath/palpitationssuspected due to pulmonary embolism Abdominal pain/distention GERD History of tachycardiapatient has an event monitor Anxiety Obesity with a BMI 35.9 Plan: Started on anticoagulation for suspected PE. Also on Levaquin for questionable atypical infection. Will get abdominal x-rays for abdominal distention/fullness. We will also consult gastroenterology service. Change Pepcid to PPI.
[2020-06-09 04:34] LABS: #Basophils 0.1 thou/uL (0.0-0.2); #Eosinphils 0.4 thou/uL (0.0-0.7); #Lymphocytes 2.6 thou/uL (1.20-3.40); #Monocytes 0.6 thou/uL (0.11-0.59); #Neutrophils 5.7 thou/uL (1.40-6.50); %Basophils 1.1 % (0.0-1.0); %Eosinophils 3.9 % (0.0-10.0); %Lymphocytes 27.4 % (21.0-51.0); %Monocytes 6.5 % (0.0-10.0); %Neutrophils 61.1 % (42.0-75.0); Hemoglobin 12.8 g/dL (12.0-16.0); Mean Corpuscular HGB CONC 32.5 g/dL (32.0-36.0); Mean Corpuscular Hemoglobin 30.6 pg (27.0-31.0); Mean Corpuscular Volume 94.4 fL (78.0-98.0); Mean Platelet Volume 8.3 fL (7.4-10.4); Platelet Count 275 thou/uL (130-400); RBC Distribution Width 12.8 % (11.5-14.5); Red Blood Cell (RBC) Count 4.17 mill/uL (4.20-5.40); White Blood Cell (WBC) Count 9.4 thou/uL (4.8-10.8)
[2020-06-09 04:57] LABS: Lactic Acid 1.3 mmol/L (0.5-2.2)
[2020-06-09 05:07] LABS: ALT (SGPT) 24 U/L (8-55); AST (SGOT) 18 U/L (5-34); Albumin 3.4 g/dL (3.5-5.0); Alkaline Phosphatase 86 U/L (40-110); Anion Gap 14 mmol/L (10-20); BUN (Urea Nitrogen) 13 mg/dL (7.0-18.7); Bilirubin, Total 0.3 mg/dL (0.2-1.2); Calc. Creatinine Clearance 107 mL/min (70-130); Calcium 8.1 mg/dL (7.8-10.44); Carbon Dioxide 21 mmol/L (22-29); Chloride 104 mmol/L (98-107); Globulin 2.7 g/dL (2.4-3.5); Glucose 85 mg/dL (70-105); Lipase 17 U/L (8-78); Potassium 4.5 mmol/L (3.5-5.1); Protein, Total 6.1 g/dL (6.0-8.3); Sodium 134 mmol/L (136-145)
[2020-06-09] MEDS: Enoxaparin Sodium 80 MG/0.8 ML SYRINGE SC SCH (06:39)
[2020-06-09] MEDS: Propranolol 10 MG TAB PO SCH ×2 (08:43→21:26)
--- NOTE | 2020-06-09 11:14 | PRG ---
DATE OF SERVICE: 06/09/2020 SUBJECTIVE: The patient is feeling okay, has no acute complaints. OBJECTIVE: VITAL SIGNS: Temperature is 97.9, pulse 96, respirations 17, O2 saturation 96% on room air, and blood pressure 126/81. HEENT: Unremarkable. NECK: No adenopathy or JVD. LUNGS: Clear. CARDIAC: S1 and S2. Regular. ABDOMEN: Soft. EXTREMITIES: No edema. LABORATORY DATA: White blood cell count 9.4, hematocrit 39.3, and platelet count 275. Sodium 134, potassium 4.5, BUN 13, creatinine 0.9, and glucose 66. Her Doppler of her lower extremities was negative. ASSESSMENT: 1. Possible pulmonary embolism - CT is really not that convincing, but I am not going to be able to refute the radiologist's original interpretation. 2. History of supraventricular tachycardia. PLAN: I would anticoagulate her for at least 3 months. She should take Eliquis 10 mg b.i.d. for 7 days, then 5 mg b.i.d. thereafter. No further recommendations at this time. Job ID: [id number]
[2020-06-09] MEDS ORDERED: Iopamidol-370 76% 500 ML 1 ML ONE (11:35)
[2020-06-09 14:16] LABS: INR-International Normal Ratio 0.9; PTT 31.3 sec (22.9-36.1); Prothrombin Time 12.7 sec (12.0-14.7)
[2020-06-09 14:17] LABS: D-Dimer Test 0.78 *mcg/mL (0.27-0.43)
[2020-06-09 14:33] LABS: HEX PHOS LA Tube 1 41.1 SEC; Hexagonal Phospholipid Neut 2.1 SEC (0-8.0)
[2020-06-09 15:15] LABS: Protein C Activity 148 % (78-152)
--- NOTE | 2020-06-09 21:21 | CT ---
CT of abdomen and pelvis: 06/09/2020 COMPARISON: None available HISTORY: Abdominal distention, history of pulmonary embolism TECHNIQUE: Axial CT imaging at 5 mm intervals from lung bases through pubic symphysis with IV and ora l contrast. Coronal and sagittal reformatted imaging obtained. FINDINGS: The visualized lung bases appear unremarkable. No free intraperitoneal air. There is debris filling the stomach. The liver is hypodense, suggesting steatosis. The gallbladder, spleen, pancreas, adrenal glands, and kidneys are grossly unremarkable. There is postoperative hardware involving the left hemipelvis. There is an old fracture of the superi or and inferior pubic ramus on the right. No evidence for bowel inflammatory change or obstruction. The vascular structures of the abdomen/pelv is appear grossly unremarkable. No abdominal or pelvic lymphadenopathy. Review of the osseous structures demonstrates no acute finding. There is a low-density lesion within the musculature anterior to the acetabulum/femoral head on the l eft, best seen on image 76, measuring 2 cm. This low-density lesion demonstrates Hounsfield units of approximately 20 which may signify mildly complex fluid. This is elongated in the craniocaudal dim ension, measuring 5.7 cm in craniocaudal dimension on the coronal imaging. IMPRESSION: Nonspecific hypodense lesion within the musculature anterior to the left femoral head and acetabulum. This could be related to prior trauma. Short-term follow-up imaging advised to document stability in 3-6 months. No acute findings are seen within the abdomen/pelvis. CODE T
[2020-06-09] MEDS: Apixaban 5 MG TAB PO SCH (21:25)
[2020-06-09] MEDS: Escitalopram Oxalate 20 mg Tablet PO SCH (21:25)
[2020-06-09] MEDS: Amitriptyline HCl 100 MG TAB PO SCH (21:26)
[2020-06-09] MEDS: GABAPENTIN ENACARBIL 600 MG PO SCH (21:26)
--- NOTE | 2020-06-09 23:14 | PDOC.HOSPP ---
- Subjective Encounter Date: 06/09/20 Encounter Time: 15:00 Subjective: Patient seen and examined for pulmonary embolism. Denies new chest pain or palpitations. No fever or chills reported. - Objective Vital Signs & Weight: Vital Signs (12 hours) Temp Pulse Resp BP Pulse Ox 06/09/20 16:45 90 16 111/70 97 06/09/20 12:00 97.7 F 86 16 116/69 97 Weight Weight 190 lb I&O: 06/08/20 06/09/20 06/10/20 06:59 06:59 06:59 Intake Total 500 1200 Output Total 600 1000 Balance -100 200 Result Diagrams: 06/10/20 03:58 06/10/20 03:58 Additional Labs: Abnormal Lab Results - Last 48 hrs 06/09/20 03:57: Sodium 134 L, Carbon Dioxide 21 L, Albumin 3.4 L 06/09/20 03:57: RBC 4.17 L, Basophils % 1.1 H, Monocytes # 0.6 H 06/09/20 13:55: Homocysteine 5.04 L 06/09/20 13:55: D-Dimer 0.78 H, Factor VIII Activity 184.0 H EKG Reviewed by me: Yes (Sinus rhythm on telemetry) Hospitalist ROS - Review of Systems Cardiovascular: denies: chest pain, palpitations, orthopnea, paroxysmal noc. dyspnea, edema, light headedness, other Gastrointestinal: denies: nausea, vomiting, abdominal pain, diarrhea, constipation, melena, hematochezia, other - Medication Medications: Active Medications Generic Name Dose Route Start Last Admin Trade Name Premq PRN Reason Stop Dose Admin Amitriptyline HCl 100 mg 06/08/20 21:00 06/09/20 21:26 Amitriptyline Hcl 100 Mg Tab PO 100 mg HS JORDON Administration Apixaban 10 mg 06/09/20 21:00 06/09/20 21:25 Apixaban 5 Mg Tab PO 10 mg BID JORDON Administration Escitalopram Oxalate 20 mg 06/08/20 21:00 06/09/20 21:25 Escitalopram Oxalate 20 Mg Tablet PO 20 mg HS JORDON Administration Levofloxacin 750 mg/ Device 150 mls @ 100 mls/hr 06/08/20 20:00 06/09/20 20:42 IVPB 150 mls Q24HR JORDON Administration Pantoprazole Sodium 40 mg 06/09/20 09:00 06/09/20 08:43 Pantoprazole 40 Mg Tab PO 40 mg DAILY JORDON Administration (Gabapentin 1 each 06/08/20 21:00 06/09/20 21:26 Enacarbil [Horizant] PO 1 each 600 Mg Tablet.Er) QPM JORDON Administration Propranolol HCl 20 mg 06/08/20 21:00 06/09/20 21:26 Propranolol 10 Mg Tab PO 20 mg BID JORDON Administration - Exam General Appearance: NAD Neck: supple, no JVD Heart: RRR, no gallops Respiratory: no wheezes, no ronchi Gastrointestinal: soft, non-tender, normal bowel sounds Extremities: no cyanosis, no clubbing Neurological: no new deficit Hosp A/P - Plan Shortness of breath/palpitationssuspected due to pulmonary embolism Abdominal pain/distention GERD History of tachycardiapatient has an event monitor Anxiety Obesity with a BMI 35.9 Plan: Patient started on Eliquis. Case discussed with oncology who recommended thrombosis panel and outpatient follow-up. Abdominal pain slowly improving. Continue to monitor. Await GI input
--- NOTE | 2020-06-10 01:37 | CON ---
DATE OF CONSULTATION: 06/09/2020 This is a GI inpatient consultation note. REQUESTING PHYSICIAN: Dr. Watson. REASON FOR CONSULTATION: Abdominal distention. HISTORY OF PRESENT ILLNESS: Neena Duvall is a very pleasant 40-year-old woman, who was admitted to the hospital a couple of days ago and found to have pulmonary embolus. Briefly, she has had a couple of months of symptoms of dyspnea and tachycardia. She had had a prior CT of the chest, which was negative for pulmonary embolus. She underwent SVT ablation just within the past few weeks, but her symptoms of dyspnea and tachycardia persisted. Just 2-3 days ago, she had fairly acute swelling of the bilateral lower extremities, left greater than right, and also felt that she was having some abdominal distention. This prompted her presentation here. She had a CT angiogram of the thorax here, which does appear to show pulmonary emboli in the right lower lobe and right middle lobe as well as some right upper lobe and right lower lobe opacities, possibly representing atypical infection. She was started on Levaquin and Lovenox. She is being switched over to Eliquis with the plan for at least three months of anticoagulation. A Doppler ultrasound of the lower extremities was negative for DVT. She remains mildly tachycardic with some dyspnea on exertion, but aside from that, her complaint remains this acute abdominal distention just over the past few days. She says normally her abdomen is flat. There is really no associated abdominal pain with this. There has been no change in bowel habits such as diarrhea or constipation. There is some mild occasional nausea, but no vomiting. There has been no melena or hematochezia. She has been tolerating her diet without any issues. Abdominal x-ray today showed a nonobstructive bowel gas pattern. REVIEW OF SYSTEMS: Full review of systems including constitutional, head, eyes, ears, nose, throat, GI, , cardiovascular, respiratory, musculoskeletal, neurologic systems is negative except as noted in the HPI. PAST MEDICAL HISTORY: SVT ablation, tobacco abuse, GERD, , tubal ligation, anxiety, neuropathy, craniotomy. ALLERGIES: NAPROSYN. OUTPATIENT MEDICATIONS: 1. BuSpar. 2. Propranolol. 3. Protonix. 4. Gabapentin. 5. Lexapro. 6. Aspirin. 7. Amitriptyline. SOCIAL HISTORY: She does smoke. No alcohol or drug use. FAMILY HISTORY: Positive for myocardial infarction, CHF, and CVA. PHYSICAL EXAMINATION: VITAL SIGNS: Temperature 97.7, pulse 90, blood pressure 111/70, 97% oxygen saturation on room air. GENERAL: No acute distress, sitting up in bed comfortably. SKIN: No jaundice. No rashes were palpable. HEENT: Eyes, no scleral icterus. Extraocular movements intact. ENT: Mucous membranes moist. No oral lesions. LYMPH: No submandibular or supraclavicular lymphadenopathy. THYROID: Nontender to palpation. HEART: Regular rate and rhythm. LUNGS: Clear to auscultation bilaterally. ABDOMEN: Mildly distended. It is not tense. There is some dullness to percussion at the flanks, but no fluid wave. Bowel sounds are present throughout. Nontender to palpation throughout. EXTREMITIES: Trace pretibial edema bilaterally. NEURO: Cranial nerves 2-12 intact bilaterally. No focal deficits. LABORATORY STUDIES: WBC 9.4, hemoglobin 12.8, platelets 275. D-dimer 0.78. INR 0.9. TSH 2.16. LFTs all normal. Lipase 17. Sodium 134, potassium 4.5, BUN 13, creatinine 0.94. Urine test negative. COVID PCR negative. IMAGING STUDIES: Abdominal x-ray showed nonobstructive bowel gas pattern. Doppler ultrasound of the lower extremities was negative for DVT. CT angiogram of the thorax demonstrated right lower lobe and right middle lobe pulmonary emboli. ASSESSMENT/PLAN: 1. Abdominal distention, acute over the past few days. 2. Pulmonary embolus, started on anticoagulation this admission. Notably, this abdominal distention is new just over the past few days and not associated with any other gastrointestinal symptoms such as constipation or even significant abdominal pain. There is no evidence of bowel obstruction. Looking at the images from her initial CT angiogram, I am not seeing any clear evidence of ascites on limited images of the upper abdomen. I do not think there is any indication for endoscopic investigation at this time. Rather, I would like to get dedicated CT imaging of the abdomen with contrast, rule out portal vein thrombus or IVC thrombus, which could possibly be raising venous pressures resulting in visceral and lower extremity edema. Continue with the plan for anticoagulation. We will follow up with her tomorrow after CT is done. Thank you for the consultation. Please call anytime with questions or concerns. Job ID: [id number]
[2020-06-10 04:49] LABS: Hemoglobin 12.6 g/dL (12.0-16.0); Platelet Count 255 thou/uL (130-400)
[2020-06-10] MEDS: Apixaban 5 MG TAB PO SCH (08:38)
[2020-06-10] MEDS: Propranolol 10 MG TAB PO SCH (08:38)
--- NOTE | 2020-06-10 13:34 | PRG ---
DATE OF SERVICE: 06/10/2020 SUBJECTIVE: Ms. Duvall is feeling pretty good today. She feels her lower extremity swelling has improved. Abdominal distention persists, but is mild, is not causing any pain. There is no nausea or vomiting. She is tolerating her diet well. She continues to have bowel movements and passed flatus. CT scan of the abdomen last night really showed no abnormalities. OBJECTIVE: VITAL SIGNS: Temperature 98.1, pulse 84, blood pressure 108/70, 99% oxygen saturation on room air. GENERAL: No acute distress. HEART: Regular rate and rhythm. LUNGS: Clear to auscultation bilaterally. ABDOMEN: Mild distention, tympanitic to percussion. Bowel sounds present. Soft and nontender to palpation. EXTREMITIES: No peripheral edema. LABORATORY STUDIES: Hemoglobin 12.6, hematocrit 37.1, platelets 255. Creatinine 0.78. ASSESSMENT AND PLAN: 1. Abdominal distention, mild. 2. Pulmonary embolus, started on anticoagulation this admission. We discussed the reassuring CT result. There is no evidence of ascites. There is no evidence of significant bowel dilation or inflammatory changes. I do not think there is any indication for endoscopy right now. It is possible she might be experiencing some mild degree of ileus, but I expect she will improve with continued anticoagulation treatment as well as increased immobilization. She is tolerating her diet. GI is going to sign off at this time. If symptoms are worsening or persistent over the next few weeks, she could follow this up with me as an outpatient. Please call back anytime with questions or concerns. Job ID: [id number]
[2020-06-10 15:34] VITALS: BP 114/81; TEMP 98
--- NOTE | 2020-06-10 18:37 | PDOC.DS.DS ---
Provider - Provider Date of Admission: 06/07/20 18:47 Date of Discharge: 06/10/20 Admitting Provider: Lan Brito DO Consultations: Pulmonary Primary Care Physician: OUT OF TOWN Course - Hospital Course Hospital Course: Patient is a 40-year-old female with supraventricular tachycardia with recent hospitalization presented to the emergency room on 06/07 with left lower extremity swelling along with shortness of breath. Chest x-ray in the emergency room was negative for acute findings. CT angiogram of the chest showed right lower lobe and middle lobe pulmonary artery emboli. She was started on Lovenox. Bilateral venous Dopplers were negative for DVT. Patient was evaluated by pulmonary. Lovenox has been transitioned to Eliquis. Patient understands the risk not limited to life-threatening complication from Eliquis. Thrombosis pr ofile has been sent and pending at the time of discharge. Patient was advised to follow-up with hematology and pulmonary as outpatient. Patient also complained of abdominal distention for which she was evaluated by gastroenterology. CT scan of the abdomen was negative for acute findings. There was no indication for endoscopy evaluation per GI. Final diagnosis: Shortness of breath/palpitationsprobably due to pulmonary embolism Abdominal pain/distentionCT scan of the abdomen negative for acute findings GERD History of tachycardiapatient has an event monitor Anxiety Obesity with a BMI 35.9 Resuscitation Status: 06/07/20 20:12 Resuscitation Status Routine Resuscitation Status: FULL: Full Resuscitation - Labs Lab Results: 06/10/20 03:58 06/10/20 03:58 Abnormal Lab Results - Last 48 hrs 06/09/20 03:57: Sodium 134 L, Carbon Dioxide 21 L, Albumin 3.4 L 06/09/20 03:57: RBC 4.17 L, Basophils % 1.1 H, Monocytes # 0.6 H 06/09/20 13:55: Homocysteine 5.04 L 06/09/20 13:55: D-Dimer 0.78 H, Factor VIII Activity 184.0 H - Physical Exam Vitals: Vital Signs (12 hours) Temp Pulse Resp BP Pulse Ox 06/10/20 15:33 98.0 F 89 17 114/81 97 06/10/20 11:21 98.1 F 84 17 108/70 99 06/10/20 07:32 97.7 F 91 17 115/63 97 Weight Weight 187 lb 9.6 oz Physical Exam: The patient was seen and examined on the day of discharge. Plan - Discharge Medications Prescriptions: Apixaban [Eliquis] 5 mg PO ASDIR #82 tablet Home Medications: Medication Instructions Recorded Confirmed Type Amitriptyline HCl [Elavil] 100 mg PO HS 05/23/20 06/08/20 History Escitalopram Oxalate [Lexapro] 20 mg PO HS 05/23/20 06/08/20 History Pantoprazole Sodium 40 mg PO DAILY 05/23/20 06/08/20 History Propranolol [Inderal] 20 mg PO TID 05/23/20 06/08/20 History busPIRone HCl [Buspirone HCl] 10 mg PO BID PRN 05/23/20 06/08/20 History Gabapentin Enacarbil [Horizant] 600 mg PO QPM 06/08/20 06/08/20 History Apixaban [Eliquis] 5 mg PO ASDIR #82 tablet 06/10/20 Rx Allergies: naproxen Allergy (Verified 06/08/20 15:57) PER ER REPORT FROM 04/29/20 - Discharge Instructions Discharge Instructions:: Please follow up on hypercoagulable work-up - Follow up Plan Referrals: [facility] PHYSICIAN,OUT OF [Primary Care Provider] - 7 Days (Follow up with your primary care provider within 7 days for continued medical management and further prescription needs. ) Kraig Renee MD [Active] - 14 Days (Please call the office to schedule an appointment within the next two weeks) Bronson Manzanares MD [Active] - 10 Days (Follow up with Dr. Manzanares for results of blood hypercoaguable panel testing. ) Timo Dill MD [Active] - 14 Days (Please call the office to schedule an appointment within the next two weeks) Disposition: HOME Quality - Care Measures CORE MEASURES:: N/A
[2020-06-10] MEDS ORDERED: Amitriptyline HCl 25 MG TAB PO SCH (21:00)
--- NOTE | 2020-06-11 06:00 | PQF ---
CLINICAL DOCUMENTATION CLARIFICATION FORM: Dear : Hector Watson Date / Time: 06/11/2020 05:59 Please exercise your independent, professional judgment in responding to the clarification form. Clinical indicators are provided on the bottom of this form for your review Please check appropriate box(es): [ ] Acute pulmonary embolism as a complication of recent SVT ablation [ ] Acute pulmonary embolism not a complication of recent SVT ablation [ ] Other diagnosis, please specify [ x] Unable to determine Physician Signature: Date/Time: For continuity of documentation, please document condition throughout progress notes and discharge summary. Thank You. To be completed by CDI/Coding staff for physician review: Present Clinical Indicators - Signs / Symptoms / Labs Results and Location in Medical Record [x] Shortness of breath/palpitation-probably due to PE DS 06/07 [x] CT of chest: demonstrated right lower lobe and right middle lobe PE Consult 06/08 [x] She underwent SVT ablation just within the past few weeks Consult 06/09 [x] dyspnea and tachycardia persisted Consult 06/09 Present Risk Factors Results and Location in Medical Record [x] Obesity DS 06/07 [x] Smoker HP 06/07 [x] Recent SVT ablation Consult 06/09 Present Treatments Results and Location in Medical Record [x] Aspirin 81 mg Oral MAR 05/26 [x] Lovenox 80mg Subcu MAR 06/08 [x] Eliquis 10mg oral MAR 06/09 [employer] Signature: Thanh Sun Phone #: [phone] Date/Time: 06/11/2020 This is a permanent part of the Medical Record [facility]
--- NOTE | 2020-06-11 14:42 | EKG ---
Test Reason : Blood Pressure : / mmHG Vent. Rate : 099 BPM Atrial Rate : 099 BPM P-R Int : 126 ms QRS Dur : 076 ms QT Int : 340 ms P-R-T Axes : 049 091 040 degrees QTc Int : 436 ms Normal sinus rhythm Possible Left atrial enlargement Rightward axis Septal infarct , age undetermined Abnormal ECG Confirmed by HITESH CASTRO ([id number]), managing editor JORGE CORTEZ ([id number]) on 06/11/2020 2:42:02 PM Referred By: Confirmed By:HITESH CASTRO
== END 2020-06-10 16:00 | disposition home or self-care (01) | DRG 176 ==
LOC: ERS 14:39 → ERHOLD 18:47 → 2NO 06-08 16:02
PROVIDERS: ADMIT Family Medicine; ATTEND Internal Medicine
DX: I26.99 Other pulmonary embolism without acute cor pulmonale (principal); K21.9 Gastro-esophageal reflux disease without esophagitis; F41.9 Anxiety disorder, unspecified; Z20.828 Contact with and (suspected) exposure to other viral communicable diseases; F17.210 Nicotine dependence, cigarettes, uncomplicated; G62.9 Polyneuropathy, unspecified; E66.9 Obesity, unspecified; Z79.899 Other long term (current) drug therapy; Z88.8 Allergy status to other drugs, medicaments and biological substances; Z98.51 Tubal ligation status; Z68.35 Body mass index [BMI] 35.0-35.9, adult
CPT/HCPCS: 0240U; 36415; 71045; 71275; 74019; 74177; 80053; 80306; 81003; 81015; 81025; 82565; 83090; 83605; 83690; 83735; 83880; 84443; 84484; 85014; 85018; 85025; 85049; 85240; 85300; 85303; 85305; 85307; 85379; 85598; 85610; 85730; 86147; 86769; 93005; 93970; 96365; 96372; J1650; J1956; Q9967

== ENCOUNTER 2020-09-13 10:29 | Emergency (ER) | payer SELFPAY ==
[~2020-09-13 10:29] MED LIST changes: -Iopamidol 370 76% 100 ML VIAL ONE; +Iopamidol-370 76% 500 ML 1 ML ONE
[2020-09-13 10:55] LABS: #Basophils 0.1 thou/uL (0.0-0.2); #Eosinphils 0.2 thou/uL (0.0-0.7); #Lymphocytes 2.4 thou/uL (1.20-3.40); #Monocytes 0.4 thou/uL (0.11-0.59); #Neutrophils 4.8 thou/uL (1.40-6.50); %Basophils 1.5 % (0.0-1.0); %Eosinophils 2.3 % (0.0-10.0); %Lymphocytes 30.4 % (21.0-51.0); %Monocytes 5.3 % (0.0-10.0); %Neutrophils 60.6 % (42.0-75.0); Mean Corpuscular HGB CONC 33.1 g/dL (32.0-36.0); Mean Corpuscular Hemoglobin 31.2 pg (27.0-31.0); Mean Corpuscular Volume 94.3 fL (78.0-98.0); Mean Platelet Volume 9.1 fL (7.4-10.4); Platelet Count 212 thou/uL (130-400); RBC Distribution Width 14.1 % (11.5-14.5); White Blood Cell (WBC) Count 7.9 thou/uL (4.8-10.8)
[2020-09-13 11:46] LABS: BHCG - Serum Negative (NEGATIVE); Pregs Control Background? CLEAR/WHITE (CLR/WHITE); Pregs Control Bar Appear? YES (CONTROL BAR)
[2020-09-13 11:49] LABS: ALT (SGPT) 17 U/L (8-55); AST (SGOT) 12 U/L (5-34); Alkaline Phosphatase 77 U/L (40-110); Anion Gap 14 mmol/L (10-20); BUN (Urea Nitrogen) 10 mg/dL (7.0-18.7); Bilirubin, Total 0.3 mg/dL (0.2-1.2); Calc. Creatinine Clearance 0 mL/min (70-130); Calcium 8.6 mg/dL (7.8-10.44); Carbon Dioxide 22 mmol/L (22-29); Chloride 104 mmol/L (98-107); Globulin 2.8 g/dL (2.4-3.5); Glucose 106 mg/dL (70-105); Potassium 3.8 mmol/L (3.5-5.1); Protein, Total 6.8 g/dL (6.0-8.3); Sodium 136 mmol/L (136-145)
[2020-09-13] MEDS ORDERED: Acetaminophen 325 MG TAB ONE (12:17)
[2020-09-13 12:26] LABS: Digoxin 0.18 ng/mL (0.8-2.0)
== END 2020-09-13 13:12 | disposition home or self-care (01) ==
LOC: ERS 10:29
DX: R07.2 Precordial pain (principal); R06.00 Dyspnea, unspecified; K21.9 Gastro-esophageal reflux disease without esophagitis; F17.210 Nicotine dependence, cigarettes, uncomplicated; Z79.899 Other long term (current) drug therapy
CPT/HCPCS: 36415; 71275; 80053; 80162; 84484; 84703; 85025; 93005; Q9967

== ENCOUNTER 2020-09-25 11:52 | Emergency (ER) | payer SELFPAY ==
[2020-09-25 13:09] LABS: #Basophils 0.1 thou/uL (0.0-0.2); #Eosinphils 0.2 thou/uL (0.0-0.7); #Lymphocytes 2.3 thou/uL (1.20-3.40); #Monocytes 0.5 thou/uL (0.11-0.59); #Neutrophils 4.6 thou/uL (1.40-6.50); %Eosinophils 2.6 % (0.0-10.0); %Monocytes 6.9 % (0.0-10.0); %Neutrophils 59.5 % (42.0-75.0); Hemoglobin 14.6 g/dL (12.0-16.0); Mean Corpuscular HGB CONC 33.9 g/dL (32.0-36.0); Mean Corpuscular Volume 94.3 fL (78.0-98.0); Platelet Count 253 thou/uL (130-400); Red Blood Cell (RBC) Count 4.56 mill/uL (4.20-5.40); White Blood Cell (WBC) Count 7.7 thou/uL (4.8-10.8)
[2020-09-25 13:17] LABS: BHCG - Serum Negative (NEGATIVE); Pregs Control Background? CLEAR/WHITE (CLR/WHITE); Pregs Control Bar Appear? YES (CONTROL BAR)
[2020-09-25 13:21] LABS: PTT 30.2 sec (22.9-36.1); Prothrombin Time 13.8 sec (12.0-14.7)
[2020-09-25] MEDS ORDERED: Metoclopramide HCl 10 MG/2 ML VIAL ONE (13:37)
[2020-09-25] MEDS ORDERED: diphenhydrAMINE 50 MG/ML VIAL ONE (13:37)
[2020-09-25 13:44] LABS: ALT (SGPT) 11 U/L (8-55); AST (SGOT) 11 U/L (5-34); Albumin 4.2 g/dL (3.5-5.0); Alkaline Phosphatase 90 U/L (40-110); Anion Gap 14 mmol/L (10-20); BUN (Urea Nitrogen) 7 mg/dL (7.0-18.7); Bilirubin, Total 0.3 mg/dL (0.2-1.2); Calc. Creatinine Clearance 0 mL/min (70-130); Calcium 8.8 mg/dL (7.8-10.44); Carbon Dioxide 25 mmol/L (22-29); Chloride 105 mmol/L (98-107); Globulin 2.8 g/dL (2.4-3.5); Glucose 86 mg/dL (70-105); Sodium 140 mmol/L (136-145)
== END 2020-09-25 14:35 | disposition home or self-care (01) ==
LOC: ERS 11:52
DX: N93.9 Abnormal uterine and vaginal bleeding, unspecified (principal); R51.9 Headache, unspecified; K21.9 Gastro-esophageal reflux disease without esophagitis; F17.210 Nicotine dependence, cigarettes, uncomplicated; Z79.01 Long term (current) use of anticoagulants; Z86.711 Personal history of pulmonary embolism; Z79.899 Other long term (current) drug therapy
CPT/HCPCS: 80053; 84703; 85025; 85610; 85730; 96374; 96375; J1200; J2765

== ENCOUNTER 2020-10-22 13:06 | Emergency (ER) | payer OTHER, SELFPAY ==
[2020-10-22] MEDS ORDERED: Lorazepam 2 MG/ML VIAL ONE (13:30)
[2020-10-22] MEDS ORDERED: Morphine 4 MG/ML VIAL ONE (13:33)
== END 2020-10-22 15:00 | disposition home or self-care (01) ==
LOC: ERS 13:06
DX: S22.089A Unspecified fracture of T11-T12 vertebra, initial encounter for closed fracture (principal); K21.9 Gastro-esophageal reflux disease without esophagitis; Z86.711 Personal history of pulmonary embolism; F17.210 Nicotine dependence, cigarettes, uncomplicated; Z79.01 Long term (current) use of anticoagulants; Z79.899 Other long term (current) drug therapy; W01.10XA Fall on same level from slipping, tripping and stumbling with subsequent striking against unspecified object, initial encounter
CPT/HCPCS: 74176; 96374; 96375; J2060; J2270

== ENCOUNTER 2020-10-31 10:11 | Emergency (ER) | payer SELFPAY ==
[2020-10-31] MEDS ORDERED: Acetaminophen 500 MG TAB ONE (11:33)
[2020-10-31] MEDS ORDERED: Morphine 4 MG/ML VIAL ONE (11:33)
[2020-10-31 11:40] LABS: #Basophils 0.1 thou/uL (0.0-0.2); #Eosinphils 0.3 thou/uL (0.0-0.7); #Lymphocytes 2.1 thou/uL (1.20-3.40); #Monocytes 0.5 thou/uL (0.11-0.59); #Neutrophils 5.1 thou/uL (1.40-6.50); %Basophils 1.3 % (0.0-1.0); %Eosinophils 3.1 % (0.0-10.0); %Lymphocytes 26.7 % (21.0-51.0); %Monocytes 5.8 % (0.0-10.0); %Neutrophils 63.1 % (42.0-75.0); Hemoglobin 13.7 g/dL (12.0-16.0); Mean Corpuscular HGB CONC 32.6 g/dL (32.0-36.0); Mean Corpuscular Hemoglobin 30.8 pg (27.0-31.0); Mean Corpuscular Volume 94.7 fL (78.0-98.0); Mean Platelet Volume 8.8 fL (7.4-10.4); Platelet Count 294 thou/uL (130-400); RBC Distribution Width 13.5 % (11.5-14.5); Red Blood Cell (RBC) Count 4.45 mill/uL (4.20-5.40)
[2020-10-31 11:47] LABS: ALT (SGPT) 24 U/L (8-55); AST (SGOT) 13 U/L (5-34); Albumin 3.8 g/dL (3.5-5.0); Alkaline Phosphatase 96 U/L (40-110); Anion Gap 12 mmol/L (10-20); BUN (Urea Nitrogen) 6 mg/dL (7.0-18.7); Bilirubin, Total 0.2 mg/dL (0.2-1.2); Calc. Creatinine Clearance 0 mL/min (70-130); Calcium 9.2 mg/dL (7.8-10.44); Carbon Dioxide 25 mmol/L (22-29); Chloride 106 mmol/L (98-107); Glucose 87 mg/dL (70-105); Protein, Total 6.8 g/dL (6.0-8.3); Sodium 139 mmol/L (136-145)
== END 2020-10-31 13:20 | disposition home or self-care (01) ==
LOC: ERS 10:11
DX: R60.0 Localized edema (principal); S22.089D Unspecified fracture of T11-T12 vertebra, subsequent encounter for fracture with routine healing; K21.9 Gastro-esophageal reflux disease without esophagitis; F17.210 Nicotine dependence, cigarettes, uncomplicated; Z79.899 Other long term (current) drug therapy
CPT/HCPCS: 36415; 72070; 72100; 80053; 83880; 85025; 93005; 93970; 96372; J2270

== ENCOUNTER 2020-11-30 10:18 | Outpatient (CLI) | payer OTHER | END 2020-11-30 10:19 | disposition home or self-care (01) | LOC: BICRAD 10:18 | PROVIDERS: ATTEND Neurological Surgery | DX: M48.54XA Collapsed vertebra, not elsewhere classified, thoracic region, initial encounter for fracture (principal) | CPT/HCPCS: 72072 ==

== ENCOUNTER 2020-12-23 18:19 | Observation (INO) | payer SELFPAY ==
[2020-12-23 19:26] LABS: #Basophils 0.1 thou/uL (0.0-0.2); #Eosinphils 0.2 thou/uL (0.0-0.7); #Lymphocytes 2.8 thou/uL (1.20-3.40); #Monocytes 0.5 thou/uL (0.11-0.59); #Neutrophils 7.7 thou/uL (1.40-6.50); %Basophils 0.5 % (0.0-1.0); %Eosinophils 1.5 % (0.0-10.0); %Lymphocytes 25.1 % (21.0-51.0); %Monocytes 4.5 % (0.0-10.0); %Neutrophils 68.4 % (42.0-75.0); Hemoglobin 13.9 g/dL (12.0-16.0); Mean Corpuscular HGB CONC 35.1 g/dL (32.0-36.0); Mean Corpuscular Hemoglobin 33.2 pg (27.0-31.0); Mean Corpuscular Volume 94.6 fL (78.0-98.0); Mean Platelet Volume 8.6 fL (7.4-10.4); Platelet Count 278 thou/uL (130-400); RBC Distribution Width 12.5 % (11.5-14.5); Red Blood Cell (RBC) Count 4.18 mill/uL (4.20-5.40); White Blood Cell (WBC) Count 11.3 thou/uL (4.8-10.8)
[2020-12-23 19:46] LABS: ALT (SGPT) 11 U/L (8-55); AST (SGOT) 9 U/L (5-34); Alkaline Phosphatase 87 U/L (40-110); Anion Gap 13 mmol/L (10-20); BUN (Urea Nitrogen) 4 mg/dL (7.0-18.7); Bilirubin, Total 0.2 mg/dL (0.2-1.2); Calc. Creatinine Clearance 0 mL/min (70-130); Calcium 8.9 mg/dL (7.8-10.44); Carbon Dioxide 24 mmol/L (22-29); Chloride 104 mmol/L (98-107); Globulin 2.8 g/dL (2.4-3.5); Glucose 108 mg/dL (70-105); Lipase 14 U/L (8-78); Potassium 3.4 mmol/L (3.5-5.1); Protein, Total 6.8 g/dL (6.0-8.3); Sodium 138 mmol/L (136-145)
[2020-12-23 20:01] LABS: Bilirubin Negative (Negative); Blood, Urine Trace (Negative); Glucose, Urine (Dipstick) Negative (Negative); Ketone, Urine Negative (Negative); Leukocyte Negative (Negative); Nitrite Negative (Negative); Protein, Urine (Dipstick) Negative (Neg-Trace); Urobilinogen 0.2 mg/dL (Less than 2)
[2020-12-23 20:04] LABS: Clarity Clear (Clear)
[2020-12-23 20:05] LABS: Specific Gravity, Urine 1.004 (1.002-1.036)
[2020-12-23 20:18] LABS: RBC/HPF 0-3 HPF (0-3); Squamous Epithelial 0-3 HPF (0-3); WBC/HPF None Seen HPF (0-3)
[2020-12-23 20:19] LABS: Bacteria/HPF None Seen HPF (None Seen)
[2020-12-23] MEDS ORDERED: Acetaminophen 325 MG TAB PO PRN (21:34)
[2020-12-23] MEDS ORDERED: Loperamide HCl 2 MG CAP PO PRN (21:34)
[2020-12-23] MEDS ORDERED: hydrALAZINE 20 MG/ML VIAL SLOW IVP PRN (21:35)
[2020-12-23] MEDS ORDERED: Magnesium 2 GM/50 ML 2 GM in Premix Bag 1 BAG IVPB SCH (22:30)
[2020-12-23 22:44] VITALS: BMI 36.1
[2020-12-23] MEDS ORDERED: Potassium Phosphate 30 MMOL in Sodium Chloride 0.9% 500 ML IVPB SCH (23:00)
[2020-12-23] MEDS: HYDROcodone/Acetaminophen 7.5/325 mg Tablet PO PRN (23:24)
[2020-12-23] MEDS: tiZANidine HCl 4 MG TAB PO PRN (23:24)
[2020-12-24 07:40] LABS: ALT (SGPT) 10 U/L (8-55); AST (SGOT) 9 U/L (5-34); Albumin 3.5 g/dL (3.5-5.0); Alkaline Phosphatase 81 U/L (40-110); Anion Gap 14 mmol/L (10-20); BUN (Urea Nitrogen) 5 mg/dL (7.0-18.7); Bilirubin, Total 0.2 mg/dL (0.2-1.2); Calc. Creatinine Clearance 140 mL/min (70-130); Calcium 8.6 mg/dL (7.8-10.44); Carbon Dioxide 22 mmol/L (22-29); Chloride 108 mmol/L (98-107); Globulin 2.5 g/dL (2.4-3.5); Glucose 90 mg/dL (70-105); Potassium 4.2 mmol/L (3.5-5.1); Sodium 140 mmol/L (136-145)
[2020-12-24] MEDS: Zinc Sulfate 220 MG CAP PO SCH (09:38)
[2020-12-24] MEDS: Enoxaparin Sodium 40 MG/0.4 ML SYRINGE SC SCH (09:38)
[2020-12-24] MEDS: Nicotine 21 MG PATCH TD SCH (09:39)
[2020-12-24] MEDS: Famotidine 20 MG TAB PO SCH ×2 (09:39→19:45)
[2020-12-24] MEDS ORDERED: Magnevist 469MG/ML 20 ML VIAL ONE (09:54)
[2020-12-24] MEDS: Digoxin 0.125 MG TAB PO SCH (10:31)
[2020-12-24] MEDS: Propranolol 10 MG TAB PO SCH ×2 (10:31→19:43)
[2020-12-24] MEDS: Ondansetron PF 4 MG/2 ML Vial IVP PRN ×2 (13:49→19:43)
[2020-12-24] MEDS: HYDROcodone/Acetaminophen 7.5/325 mg Tablet PO PRN ×3 (13:50→23:56)
[2020-12-24] MEDS ORDERED: GABAPENTIN ENACARBIL 600 MG PO SCH (21:00)
[2020-12-24] MEDS: tiZANidine HCl 4 MG TAB PO PRN (23:54)
[2020-12-25] MEDS: Digoxin 0.125 MG TAB PO SCH (09:02)
[2020-12-25] MEDS: Propranolol 10 MG TAB PO SCH (09:02)
[2020-12-25] MEDS: Famotidine 20 MG TAB PO SCH (09:03)
[2020-12-25] MEDS: Zinc Sulfate 220 MG CAP PO SCH (09:03)
[2020-12-25] MEDS: Nicotine 21 MG PATCH TD SCH (09:03)
[2020-12-25] MEDS: Enoxaparin Sodium 40 MG/0.4 ML SYRINGE SC SCH (09:04)
[2020-12-25] MEDS: GABAPENTIN ENACARBIL 600 MG PO SCH ×2 (10:20→10:21)
[2020-12-25] MEDS: Ondansetron PF 4 MG/2 ML Vial IVP PRN (10:24)
[2020-12-25 12:01] VITALS: BP 111/80; TEMP 98.3
== END 2020-12-25 12:38 | disposition home or self-care (01) ==
LOC: ERS 18:19 → 2SE 20:58
PROVIDERS: ADMIT Internal Medicine; ATTEND Internal Medicine
DX: R90.89 Other abnormal findings on diagnostic imaging of central nervous system (principal); R53.1 Weakness; R20.0 Anesthesia of skin; R20.2 Paresthesia of skin; R42 Dizziness and giddiness; R26.81 Unsteadiness on feet; I47.1 Supraventricular tachycardia; S22.089A Unspecified fracture of T11-T12 vertebra, initial encounter for closed fracture; E66.9 Obesity, unspecified; Z68.36 Body mass index [BMI] 36.0-36.9, adult; Z88.6 Allergy status to analgesic agent; Z79.899 Other long term (current) drug therapy; Z87.81 Personal history of (healed) traumatic fracture; Z79.01 Long term (current) use of anticoagulants; Z98.890 Other specified postprocedural states; W19.XXXA Unspecified fall, initial encounter
CPT/HCPCS: 36415; 70450; 70551; 70552; 71275; 80053; 81003; 83690; 83735; 84443; 84484; 85025; 85379; 93005; 96372; 96374; 96375; 96376; A9579; G0378; J1650; J2405; J3475; J7030

== ENCOUNTER 2021-12-27 17:43 | Emergency (ER) | payer SELFPAY | END 2021-12-27 20:16 | disposition home or self-care (01) | LOC: ERS 17:43 | DX: U07.1 COVID-19 (principal); K21.9 Gastro-esophageal reflux disease without esophagitis; F17.210 Nicotine dependence, cigarettes, uncomplicated; Z79.899 Other long term (current) drug therapy | CPT/HCPCS: 71045; 87804; U0003; U0005 ==

== ENCOUNTER 2022-09-20 17:39 | Emergency (ER) | payer SELFPAY ==
[2022-09-20] MEDS ORDERED: Ondansetron PF 4 MG/2 ML Vial ONE (20:02)
[2022-09-20] MEDS ORDERED: Aspirin Chewable 81 MG TAB ONE (20:02)
[2022-09-20] MEDS ORDERED: Nitroglycerin 2% Ointment 1 INCH/1 GM Packet ONE (20:02)
[2022-09-20 20:22] LABS: #Basophils 0.1 thou/uL (0.0-0.2); #Eosinphils 0.2 thou/uL (0.0-0.7); #Lymphocytes 3.5 thou/uL (1.20-3.40); #Monocytes 0.5 thou/uL (0.11-0.59); #Neutrophils 5.1 thou/uL (1.40-6.50); %Basophils 0.9 % (0.0-1.0); %Eosinophils 1.7 % (0.0-10.0); %Lymphocytes 37.2 % (21.0-51.0); %Neutrophils 55.2 % (42.0-75.0); Hemoglobin 14.5 g/dL (12.0-16.0); Mean Corpuscular HGB CONC 33.7 g/dL (32.0-36.0); Mean Corpuscular Hemoglobin 31.1 pg (27.0-31.0); Mean Corpuscular Volume 92.2 fl (78.0-98.0); Mean Platelet Volume 9.3 fL (7.4-10.4); Platelet Count 219 10x3/uL (130-400); RBC Distribution Width 12.8 % (11.5-14.5); Red Blood Cell (RBC) Count 4.67 mill/uL (4.20-5.40); White Blood Cell (WBC) Count 9.3 10x3/uL (4.8-10.8)
[2022-09-20 20:25] LABS: BHCG - Serum Negative (NEGATIVE); Pregs Control Background? CLEAR/WHITE (CLR/WHITE); Pregs Control Bar Appear? YES (CONTROL BAR)
[2022-09-20 20:43] LABS: ALT (SGPT) 11 U/L (8-55); AST (SGOT) 11 U/L (5-34); Albumin 4.4 g/dL (3.5-5.0); Alkaline Phosphatase 72 U/L (40-110); Anion Gap 10 mmol/L (10-20); BUN (Urea Nitrogen) 7 mg/dL (7.0-18.7); Bilirubin, Total 0.2 mg/dL (0.2-1.2); CK (CPK) 45 U/L (29-168); Calc. Creatinine Clearance 0 mL/min (70-130); Calcium 9.3 mg/dL (7.8-10.44); Carbon Dioxide 27 mmol/L (22-29); Chloride 105 mmol/L (98-107); Estimated GFR 92; Globulin 2.8 g/dL (2.4-3.5); Glucose 89 mg/dL (70-105); Lipase 25 U/L (8-78); Potassium 3.6 mmol/L (3.5-5.1); Protein, Total 7.2 g/dL (6.0-8.3); Sodium 138 mmol/L (136-145)
== END 2022-09-20 22:48 | disposition home or self-care (01) ==
LOC: ERS 17:39
DX: R07.89 Other chest pain (principal); K21.9 Gastro-esophageal reflux disease without esophagitis; F17.210 Nicotine dependence, cigarettes, uncomplicated
CPT/HCPCS: 36415; 71275; 80053; 82550; 83690; 84484; 84703; 85025; 93005; 96374; J2405

== ENCOUNTER 2022-12-26 13:53 | Outpatient (CLI) | payer OTHER, SELFPAY | END 2022-12-26 13:54 | disposition home or self-care (01) | LOC: RAD 13:53 | DX: Z01.818 Encounter for other preprocedural examination (principal); M54.12 Radiculopathy, cervical region | CPT/HCPCS: 71045 ==

== ENCOUNTER 2023-07-31 09:29 | Emergency (ER) | payer SELFPAY ==
[2023-07-31] MEDS ORDERED: HYDROcodone/Acetaminophen 5/325 mg Tablet ONE (10:47)
[2023-07-31 11:08] LABS: #Basophils 0.1 thou/uL (0.0-0.2); #Eosinphils 0.1 thou/uL (0.0-0.7); #Monocytes 0.9 thou/uL (0.11-0.59); #Neutrophils 9.1 thou/uL (1.40-6.50); %Basophils 0.8 % (0.0-1.0); %Lymphocytes 24.3 % (21.0-51.0); %Monocytes 6.2 % (0.0-10.0); %Neutrophils 64.9 % (42.0-75.0); Hematocrit 41.9 % (36.0-47.0); Hemoglobin 13.7 g/dL (12.0-16.0); Mean Corpuscular HGB CONC 32.7 g/dL (32.0-36.0); Mean Corpuscular Hemoglobin 29.5 pg (27.0-31.0); Mean Corpuscular Volume 90.3 fl (78.0-98.0); Mean Platelet Volume 10.9 fL (7.4-10.4); Platelet Count 309 10x3/uL (130-400); Red Blood Cell (RBC) Count 4.64 mill/uL (4.20-5.40)
[2023-07-31 11:36] LABS: ALT (SGPT) 18 U/L (8-55); AST (SGOT) 13 U/L (5-34); Albumin 4.2 g/dL (3.5-5.0); Alkaline Phosphatase 74 U/L (40-110); Anion Gap 11 mmol/L (10-20); BUN (Urea Nitrogen) 9 mg/dL (7.0-18.7); Bilirubin, Total 0.2 mg/dL (0.2-1.2); Calc. Creatinine Clearance 0 mL/min (70-130); Calcium 9.4 mg/dL (7.8-10.44); Carbon Dioxide 25 mmol/L (22-29); Chloride 102 mmol/L (98-107); Estimated GFR 102; Glucose 81 mg/dL (70-105); Potassium 4.3 mmol/L (3.5-5.1); Protein, Total 7.2 g/dL (6.0-8.3); Sodium 134 mmol/L (136-145)
== END 2023-07-31 13:06 | disposition home or self-care (01) ==
LOC: ERS 09:29
DX: T88.9XXA Complication of surgical and medical care, unspecified, initial encounter (principal); M54.50 Low back pain, unspecified; M79.605 Pain in left leg; Z87.891 Personal history of nicotine dependence
CPT/HCPCS: 36415; 80053; 85025; 86140